=== PATIENT | female | born 1960 | race Caucasian/White ===

== ENCOUNTER 2022-07-09 12:39 | Emergency (ER) | payer MEDICARE ==
[~2022-07-09] VITALS: Ht 157.5 cm; Wt 65.0 kg
[2022-07-09] MEDS ORDERED: NAPROXEN500 MG PO (16:18)
[2022-07-09 16:25] VITALS: BP 197/83
== END 2022-07-09 16:25 | disposition home or self-care (01) ==
LOC: ED 12:39
DX: S83.91XA Sprain of unspecified site of right knee, initial encounter (principal); F95.2 Tourette's disorder; X58.XXXA Exposure to other specified factors, initial encounter